=== PATIENT | male | born 1955 | race Caucasian/White ===

== ENCOUNTER 2017-05-27 14:00 | Inpatient (IN) | payer OTHER ==
[~2017-05-27] VITALS: Ht 182.9 cm; Wt 85.1 kg
--- NOTE | ~2017-05-27 | OR ---
PATIENT'S NAME: WILLIS CANELA [facility] AGE: 61 Y [address] ROOM: [place] [address] LOCATION: [facility] ADMIT DATE: 06/10/2017 OR/Procedure Report DISCHARGE DATE: FAMILY PHYSICIAN: RADHA BA MD ATTENDING PHYSICIAN: GREY GUZMAN SURGEON: Grey Guzman MD PRODUCTION [employer]ERKS SUPERVISOR: 1. Samm Mcgee PA-C. 2. Vance Sebastian CST/POTTERY STRIPER. DATE OF PROCEDURE: 06/10/2017 PRE-OP DIAGNOSIS: Degenerative joint disease, right knee. POST-OP DIAGNOSIS: Degenerative joint disease, right knee. OPERATION: Right total knee arthroplasty with computer navigation. ANESTHESIA: Spinal anesthesia plus adductor canal block plus periarticular local anesthesia (ropivacaine with epinephrine). ESTIMATED BLOOD LOSS: Less than 10 mL. DRAIN: None. SPECIMEN: None. COMPLICATIONS: None. IMPLANT SYSTEM: [place]ham Triathlon. Size 5 right posterior stabilized femoral component. Size 4 universal modular tibial base plate. 13 mm posterior stabilized size 4, X3 tibial polyethylene insert. 35 mm oval X3 patella component. INDICATIONS FOR SURGERY: Willis Canela is a 61-year-old male who presents with advanced right knee degenerative joint disease and associated severely compromised activities of daily living. The patient has decided to proceed with knee replacement after having been thoroughly counseled regarding the associated risks, benefits, and limitations. We have specifically reviewed the risks and implications of infection, deep venous thrombosis, pulmonary embolism, mortality, neurovascular complications, blood transfusion (and associated potential for disease transmission or transfusion reaction), stiffness, instability, mechanical deterioration of the components (due to wear and or loosening), and the potential need for revision. We have also emphasized the importance of active involvement and compliance with post- operative physical therapy as a means of optimizing range of motion and PATIENT'S NAME: WILLIS CANELA [facility] AGE: 61 Y [address] ROOM: [place] [address] LOCATION: [facility] ADMIT DATE: 06/10/2017 OR/Procedure Report DISCHARGE DATE: FAMILY PHYSICIAN: RADHA BA MD ATTENDING PHYSICIAN: GREY GUZMAN functional recovery. Informed consent has been granted. DESCRIPTION OF PROCEDURE: The patient was positioned supine after administration of anesthesia and prophylactic antibiotics. A well-padded pneumatic tourniquet was placed around the right proximal thigh, and the right lower extremity was prepped and draped with vigilant sterile technique. The patient's name as well as the intended operative side and procedure were confirmed with a verbal time-out involving myself, the circulating nurse, the scrub nurse, and the anesthesiologist. Examination under anesthesia demonstrated no active skin lesions or masses. There was a large effusion. There was no erythema. There was no abnormal warmth. Range of motion under anesthesia was from 5 degrees of hyperextension to 140 degrees of flexion. There was no ligamentous insufficiency. The right lower extremity was elevated and exsanguinated with an Esmarch wrap, and the pneumatic tourniquet was inflated to 300mmHg. The knee was approached through a longitudinal midline incision. A medial parapatellar arthrotomy was performed and the patella was everted. Examination of the joint space demonstrated a large amount of benign-appearing translucent synovial fluid. There was full-thickness loss of articular cartilage involving 90% of the medial half of the patella and the entire medial half of the femoral trochlea. There was extensive dark brown staining of the exposed subchondral bone in these regions. This had the appearance of hemosiderin deposition. Interestingly, there was no hemosiderin deposition in any of the intact articular cartilage. There was slight hemosiderin staining at the small osteophytes at the medial and lateral margins of the distal femur. There was a 1 x 2 cm diameter region of high-grade partial thickness articular cartilage loss at the lateral aspect of the medial femoral condyle. There were mild grade 3 degenerative changes at the lateral half of the medial tibial plateau and the medial half of the lateral tibial plateau. There was mild inner perimeter tearing at the medial meniscus. The lateral meniscus was intact. The cruciate ligaments were intact. There were small osteophytes at the inferior and medial margins of the patella. Remnants of the menisci and cruciate ligaments were excised. The [employer] customer insight navigation femoral tracker was pinned in place at the distal aspect of the femoral trochlea. Absence of motion between the femur and the tracking device was confirmed manually and visually. Femoral osseous landmarks were obtained in order to calibrate the computer navigation system. Landmarks included the center of rotation of the ipsilateral hip, the center-point of the distal femur, the femoral AP axis, 57 points on the medial femoral condyle articular surface, and 57 points on the lateral femoral condyle articular surface. The SnappCloud computer navigation system was subsequently utilized PATIENT'S NAME: WILLIS CANELA [facility] AGE: 61 Y [address] ROOM: [id number] [place] [id number] LOCATION: [facility] ADMIT DATE: 06/10/2017 OR/Procedure Report DISCHARGE DATE: FAMILY PHYSICIAN: RADHA BA MD ATTENDING PHYSICIAN: GREY GUZMAN to position the distal femoral resection block such that the distal femoral resection was performed perfectly perpendicular to the femoral mechanical axis. The distal femoral resection was performed with a VOYAA oscillating saw. The SnappCloud computer navigation tibial tracker was pinned in place at the anterior aspect of the tibial plateau. Absence of motion between the tibia and the tracking device was confirmed manually and visually. Tibial osseous landmarks were obtained in order to calibrate the computer navigation system. Landmarks included the center-point of the tibial plateau, the AP tibial axis, 57 points on the medial tibial plateau articular surface, 57 points on the lateral tibial plateau articular surface, the medial malleolus, and the lateral malleolus. The SnappCloud computer navigation system was subsequently utilized to position the proximal tibial resection block such that the proximal tibial resection was performed perfectly perpendicular to the tibial mechanical axis. The proximal tibial resection was performed with a Peekaboo Mobile Precision oscillating saw. Perpendicularity of the tibial resection with respect to the tibial shaft axis was reconfirmed by inserting a spacer- block attached to an extramedullary guide mandy. External rotation of the anterior and posterior femoral resections was set parallel to the epicondylar axis and carefully adjusted in order to create a rectangular flexion gap. The box resection was performed with a reciprocating saw. Anterior and posterior chamfer resections were performed with the oscillating saw. Posterior condyle osteophytes were excised with an osteotome. All other osteophytes were excised with a rongeur. Resection of all remnants of the menisci was reconfirmed. Flexion and extension gaps were confirmed to be symmetric and well balanced with a spacer-block technique. The patella resection was performed with an oscillating saw such that the composite thickness of the reconstructed patella was equivalent to the thickness of the [place] patella. Patella tracking was confirmed to be optimal. Patellar tracking was optimal, and there was no need for a lateral retinacular release. All trial components were removed and all prepared osseous surfaces were thoroughly irrigated with pulsatile saline lavage and dried prior to cementing all three components in a single stage using Sixto Simplex cement containing pre-mixed tobramycin. All extruded excess cement was removed. The entire joint space was thoroughly inspected and thoroughly irrigated with bacteriostatic pulsatile saline lavage to assure that there was no residual debris of any sort. Final range of motion was from full extension (with no residual passive hyperextension) to 130 degrees of flexion. Patella tracking was reconfirmed PATIENT'S NAME: WILLIS CANELA [facility] AGE: 61 Y [address] ROOM: [address] [address] LOCATION: [facility] ADMIT DATE: 06/10/2017 OR/Procedure Report DISCHARGE DATE: FAMILY PHYSICIAN: RADHA BA MD ATTENDING PHYSICIAN: GREY GUZMAN to be optimal. There was very good anteroposterior stability at 90 degrees of flexion. There was less than 1 mm of medial lift-off to valgus stress in full extension. There was less than 1 mm of lateral lift-off to varus stress in full extension. The arthrotomy was closed with multiple simple and [id number] interrupted #1 Vicryl. Subcutaneous tissues were thoroughly re-irrigated with bacteriostatic pulsatile saline lavage. Subcutaneous tissues were re- approximated with simple buried interrupted #0 Vicryl sutures. The skin was closed with simple buried interrupted 2-0 Vicryl sutures followed by surgical jessica. The dressing consisted of Xeroform gauze, 4x4 gauze, ABD pads and two 6-inch Bin Wraps. There were no intra-operative complications. It should be noted that the physician's assistant case manager played an active, integral role throughout this entire operation. By providing expert retraction, they greatly facilitated and expedited safe and effective exposure of the distal femur, proximal tibia and patella for preparation and implantation of the components. They were also actively involved in the patient's positioning, prepping and draping, as well as wound closure. MD BERNABE SANDY/mavis /[id number] d: 06/10/17 2327 t: 06/14/17 1150, OPERATIVE SUMMARY
--- NOTE | ~2017-05-27 | DS ---
PATIENT'S NAME: DOLORES CANELA [facility] AGE: 61 Y [address] ROOM: [place] [address] LOCATION: [facility] ADMIT DATE: 06/10/2017 Discharge Summary DISCHARGE DATE: 06/12/2017 FAMILY PHYSICIAN: Simba Maloney MD ATTENDING PHYSICIAN: Grey Guzman PRIMARY DIAGNOSIS: Degenerative joint disease of the right knee. SECONDARY DIAGNOSES: 1. History of renal transplant (kidney). 2. Hypertension. 3. Hyperlipidemia. 4. Hypothyroidism. 5. Prediabetes. 6. Aortic root dilatation. PROCEDURE PERFORMED: Right total knee arthroplasty with computer navigation. HISTORY: The patient is a 61-year-old male who presents with advanced right knee degenerative joint disease and associated severely compromised activities of daily living. The patient has decided to proceed with total knee arthroplasty after having been thoroughly counseled regarding the risks, benefits, limitations, and alternatives. Please refer to the outpatient clinic notes and admission history and physical for this patient. HOSPITAL COURSE: The patient underwent a right total knee arthroplasty on 06/10/2017 without complications. Spinal anesthesia plus adductor canal block plus periarticular local anesthesia was utilized. The patient received 24 hours of perioperative prophylactic antibiotics and remained hemodynamically stable, neurovascularly intact throughout the entire hospital course. The postoperative prophylactic deep venous thrombosis prophylaxis consisted of aspirin 325, early mobilization, and pneumatic compression devices. Daily physical therapy for gait training, transfer training range of motion and quadriceps isometric exercises were received. The patient progressed well in physical therapy. On the date of discharge, 06/12/2017, the incision at the knee was healing well and showed no signs of infection. DISPOSITION: Home. DISCHARGE ACTIVITY: The patient is to bear weight as tolerated with range of motion and quadriceps isometric exercises as instructed. The operative extremity is to be elevated at least 90% of the day. There is to be sterile 4x4 gauze dressings to the incision daily. Dr. Guzman is to be notified immediately if there are any increased pain, fevers, chills, erythema, or drainage. PATIENT'S NAME: DOLORES CANELA [facility] AGE: 61 Y [address] ROOM: [address] [address] LOCATION: [facility] ADMIT DATE: 06/10/2017 Discharge Summary DISCHARGE DATE: 06/12/2017 FAMILY PHYSICIAN: Simba Maloney MD ATTENDING PHYSICIAN: Grey Guzman DISCHARGE MEDICATIONS: 1. Dilaudid 2 mg take 1 to 2 tablets p.o. every 4 hours as needed for pain. 2. Aspirin 325 take 1 tab p.o. daily for DVT prevention. FOLLOWUP: Follow up date is scheduled for June for initial postoperative evaluation and x-rays at that time. PILLO LOUIE FOR GREY GUZMAN MD TLB/modl /[id number] d: 06/18/17 0349 t: 06/19/17 1120, DISCHARGE SUMMARY
[2017-05-28] MEDS ORDERED: SIROLIMUS PO (15:41)
[2017-05-28] MEDS ORDERED: CALTRATE 600 WI1 TAB PO (15:41)
[2017-05-28] MEDS ORDERED: ASPIRIN EC81 MG PO (15:41)
[2017-05-28] MEDS ORDERED: MAGOX 400400 MG PO (15:42)
[2017-05-28] MEDS ORDERED: OMEPRAZOLE20 M1 PO (15:42)
[2017-05-28] MEDS ORDERED: TAB-A-VITE1 EACH PO (15:43)
[2017-05-28] MEDS ORDERED: VASOTEC10 MG PO (15:43)
[2017-05-28] MEDS ORDERED: LIPITOR40 MG PO (15:43)
[2017-05-28] MEDS ORDERED: GLUCOPHAGE500 MG PO (15:44)
[2017-05-28] MEDS ORDERED: SYNTHROID150 MCG PO (15:44)
[2017-05-28] MEDS ORDERED: PROGRAF0.5 MG PO (15:45)
[2017-05-28] MEDS ORDERED: MINOCIN100 MG PO (15:45)
[2017-05-28] MEDS ORDERED: LOPRESSOR50 MG PO (15:45)
[2017-05-28] MEDS ORDERED: TYLENOL EXTRA500 MG PO (15:46)
[2017-06-12] MEDS ORDERED: ECOTRIN325 MG PO (10:21)
[2017-06-12] MEDS ORDERED: MIRALAX17 GM PO (10:24)
[2017-06-12] MEDS ORDERED: DILAUDID 2MG(HYD2 MG PO (10:25)
== END 2017-06-12 11:40 | disposition disaster alternative care site (69) | DRG 470 ==
LOC: G3N 06-10 05:56
PROVIDERS: ADMIT Orthopaedic Surgery
PROC: 0SRC0J9 Replacement of Right Knee Joint with Synthetic Substitute, Cemented, Open Approach (ICD-10-PCS; principal; 2017-06-10)
PROC: 8E0YXBZ Computer Assisted Procedure of Lower Extremity (ICD-10-PCS; 2017-06-10)
DX: M17.11 Unilateral primary osteoarthritis, right knee (principal); I11.0 Hypertensive heart disease with heart failure; Z94.0 Kidney transplant status; E03.9 Hypothyroidism, unspecified; K21.9 Gastro-esophageal reflux disease without esophagitis; E78.5 Hyperlipidemia, unspecified; I77.819 Aortic ectasia, unspecified site; R73.03 Prediabetes; G47.33 Obstructive sleep apnea (adult) (pediatric); Z87.891 Personal history of nicotine dependence
CPT/HCPCS: A9270; C1713; C1776; J1100; J1170; J1885; J2001; J2250; J2795; J7030; J7120; J7507; J7520

== ENCOUNTER → 2017-05-29 | Outpatient (CLI) | payer OTHER ==
[~2017-05-29] MED LIST: ASPIRIN EC81 MG PO; CALTRATE 600 WI1 TAB PO; DILAUDID 2MG(HYD2 MG PO; ECOTRIN325 MG PO; GLUCOPHAGE500 MG PO; LIPITOR40 MG PO; LOPRESSOR50 MG PO; MAGOX 400400 MG PO; MINOCIN100 MG PO; MIRALAX17 GM PO; OMEPRAZOLE20 M1 PO; PROGRAF0.5 MG PO; SIROLIMUS PO; SYNTHROID150 MCG PO; TAB-A-VITE1 EACH PO; TYLENOL EXTRA500 MG PO; VASOTEC10 MG PO
== END ==
LOC: GNJRC 10:29
DX: Z01.818 Encounter for other preprocedural examination (principal); M17.11 Unilateral primary osteoarthritis, right knee